=== PATIENT | female | born 1970 | race Caucasian/White ===

== ENCOUNTER 2018-12-29 11:06 | Day surgery (SDC) | payer OTHER ==
[~2018-12-29] VITALS: Ht 172.7 cm; Wt 72.8 kg
[~2018-12-29 11:06] MED LIST: ACET-907 PO; AMOX500C PO; AMPICILLIN SOD/SULBACTAM SOD 3 GM in D5W MINI-BAG PLUS 100 ML IV ONE; LR 1,000 ML IV ONE; dexameTHASONE 4 MG/ML 1ML VIAL (J1100) IV ONE
[2018-12-29] MEDS ORDERED: PROPOFOL 200 MG/20 ML VIAL As Ordered ONE (14:58)
[2018-12-29] MEDS ORDERED: fentaNYL 100 MCG/2 ML INJECTION (J3010) As Ordered ONE (14:58)
[2018-12-29] MEDS ORDERED: MIDAZOLAM INJ 2 MG/2 ML VIAL (J2250) As Ordered ONE (14:58)
[2018-12-29] MEDS ORDERED: LIDOCAINE 2% INJ 100 MG/5 ML SDV (FOR ANES.) As Ordered ONE (14:58)
[2018-12-29] MEDS ORDERED: LIDOCAINE 2% W/ EPINEPHRINE 1.7 ML DENTAL INJ As Ordered ONE ×2 (15:17→15:28)
[2018-12-29] MEDS ORDERED: SUCCINYLCHOLINE 100 MG/5 ML SYRINGE (J0330) As Ordered ONE (15:23)
[2018-12-29] MEDS ORDERED: METOCLOPRAMIDE INJ 10MG/2ML VIAL (J2765) As Ordered ONE ×2 (15:24→15:52)
[2018-12-29] MEDS ORDERED: KETOROLAC 60 MG/2 ML VIAL (J1885) As Ordered ONE (15:24)
[2018-12-29] MEDS ORDERED: ONDANSETRON 4MG/2ML VIAL (J2405) As Ordered ONE (15:24)
[2018-12-29] MEDS ORDERED: fentaNYL 100 MCG/2 ML INJECTION (J3010) IV PRN (16:15)
[2018-12-29] MEDS ORDERED: METOCLOPRAMIDE INJ 10MG/2ML VIAL (J2765) IV PRN (16:15)
[2018-12-29] MEDS ORDERED: oxyCODONE 5MG TAB PO PRN (16:15)
[2018-12-29] MEDS ORDERED: PROMETHAZINE INJ 25 MG/ML VIAL (J2550) IV PRN (16:15)
[2018-12-29 17:50] VITALS: BP 134/62
--- NOTE | 2018-12-31 11:23 | RO ---
DATE OF PROCEDURE: 12/29/2018 PREOPERATIVE DIAGNOSIS: Symptomatic and decayed tooth #30. POSTOPERATIVE DIAGNOSIS: Status post symptomatic and decayed tooth #30. PROCEDURE PERFORMED: Surgical extraction of tooth #30. SURGEON: Melvin Heart DMD, MD LOAN ORIGINATOR: ANESTHESIA USED: General endotracheal anesthesia via oral LYRIC. SPECIMEN: Tooth for gross only. INDICATIONS FOR SURGERY: Angelica is a pleasant, 48-year-old female who was referred to my office from her dentist for evaluation for extraction of tooth #30. She has a significant dental anxiety and reports that she has been to six different dentists and that non have been able to anesthetize the tooth. I gave her the option of intravenous (IV) conscious sedation in the office versus general anesthesia in an operating room and she elected the latter. Clinical exam reveals grossly decayed tooth #30 with tenderness to palpation. No signs or symptoms of infection. A complete history and physical was completed and is in the patient's chart as well as an informed consent, which was explained to the patient and is also in the patient's chart. DESCRIPTION OF PROCEDURE: The patient presented to preop holding area. Any last minute questions were addressed. History and physical and the informed consent were updated and signed. At that point, the patient was taken back to the operating room. She was laid supine on the operating room table. Ulnar nerve protectors were placed. Noninvasive cardiac monitors were applied. She then underwent general anesthesia and was intubated with an oral LYRIC. At this point, preoperative antibiotics were administered. A methods time analyst-out was performed to identify the patient, the procedure and any other precautions. A moist throat pack was inserted in the patient's oropharynx followed by the administration of 2% lidocaine with 1:100,000 epinephrine as inferior alveolar nerve block and local infiltration. She was given two carpules of that. A full-thickness flap was released with a buccal extension distally around tooth #30 and into the sulcus of tooth #29. A small buccal trough of tooth #30 was made and a cowhorn was then applied to the tooth and the tooth was then luxated and delivered in full. At this point, the socket was copiously irrigated and curetted. The flap was closed with #3-0 chromic sutures, gauze. Hemostasis was achieved and observed. The oral cavity was irrigated and suctioned. The throat pack was removed. The patient was taken back to the postanesthesia care unit (PACU) for further observation. ESTIMATED BLOOD LOSS: 5 mL. DRAINS: There were no drains placed. COMPLICATIONS: None to mention at time of surgery.
== END 2018-12-29 17:50 | disposition home or self-care (01) ==
LOC: M SDC 11:06
PROVIDERS: ATTEND Dentist
DX: K02.9 Dental caries, unspecified (principal); Z91.040 Latex allergy status; Z88.1 Allergy status to other antibiotic agents; Z79.899 Other long term (current) drug therapy; F41.9 Anxiety disorder, unspecified
CPT/HCPCS: 88300; D7210; D9223; J0330; J1100; J1885; J2250; J2405; J2765; J3010